=== PATIENT | female | born 1985 | race African-American/Black ===

== ENCOUNTER 2017-10-09 23:08 | Emergency (ER) | payer MEDICAID ==
[~2017-10-09] VITALS: Ht 170.2 cm; Wt 113.6 kg
[~2017-10-09 23:08] MED LIST: CYCL-1 PO; DIAZ5TAB PO; DULO60CA45 PO; IBUP-1986 PO; LISI-232 PO; LORA-269 PO
[2017-10-09 23:46] LABS: BASOPHILS % (AUTO) 0.1 % (0-1); EOSINOPHILS % (AUTO) 0.4 % (0-6); HEMOGLOBIN 13.6 g/dl (12.0-16.0); LYMPHOCYTES # (AUTO) 0.7 X10'3 (1.1-4.8); LYMPHOCYTES % (AUTO) 6.9 % (21-51); MEAN CORPUSCULAR HEMOGLOBIN 30.4 PG (27.0-31.0); MEAN CORPUSCULAR HGB CONC 34.9 % (33.0-36.5); MEAN CORPUSCULAR VOLUME 86.9 FL (78-98); MEAN PLATELET VOLUME 8.7 FL (7.4-10.4); MONOCYTES # (AUTO) 0.5 X10'3 (0-0.9); MONOCYTES % (AUTO) 4.3 % (2-12); NEUTROPHILS # (AUTO) 9.2 X10'3 (1.8-7.7); NEUTROPHILS % (AUTO) 88.3 % (42-75); PLATELET COUNT 335 X10'3 (140-440); RED BLOOD COUNT 4.49 X10'6 (4.20-5.60); RED CELL DISTRIBUTION WIDTH 13.8 % (11.5-14.5); WHITE BLOOD COUNT 10.4 X10'3 (4.5-11.0)
[2017-10-09 23:58] LABS: PARTIAL THROMBOPLASTIN TIME 27 SECONDS (22-32); PROTHROMBIN TIME 10.2 SECONDS (9.0-12.0)
[2017-10-10 00:01] LABS: CHLORIDE 100 MMOL/L (99-107); GLUCOSE 101 MG/DL (70-104); POTASSIUM 3.9 MMOL/L (3.5-5.1); SODIUM 137 MMOL/L (135-145); TOTAL CARBON DIOXIDE 25.8 MMOL/L (24-32)
[2017-10-10 00:02] LABS: ALANINE AMINOTRANSFERASE 40 U/L (12-78); ALBUMIN 3.8 G/DL (3.4-5.0); ALBUMIN/GLOBULIN RATIO 0.8 (1.1-1.5); ALKALINE PHOSPHATASE 91 IU/L (46-116); ANION GAP 11 (8-16); ASPARTATE AMINO TRANSFERASE 20 U/L (10-37); BILIRUBIN,TOTAL 0.9 MG/DL (0.1-1.0); BLOOD UREA NITROGEN 11 MG/DL (7-18); BUN/CREATININE RATIO 12.4 (6.6-38.0); CALCIUM 8.8 MG/DL (8.5-10.1); CREATININE 0.89 MG/DL (0.40-0.90); TOTAL PROTEIN 8.5 G/DL (6.4-8.2); eGFR 90 ML/MIN
[2017-10-10 00:55] LABS: URINE HCG NEGATIVE (NEG)
[2017-10-10 01:05] LABS: CLARITY,URINE CLEAR (Clear); COLOR,URINE YELLOW (Yellow); GLUCOSE, URINE NEGATIVE (Neg); KETONES,URINE NEGATIVE (Neg); LEUKOCYTE ESTERASE ,URINE NEGATIVE (Neg); NITRITES, URINE NEGATIVE (Neg); OCCULT BLOOD,URINE TRACE-LYSED (Neg); PROTEIN,URINE TRACE mg/dl (Neg); UROBILINOGEN,URINE 0.2 E.U/dL (0.2-1.0)
[2017-10-10 01:08] LABS: UA COLLECTION TYPE CLN CATCH MIDSTREAM
[2017-10-10 01:10] LABS: BACTERIA,URINE FEW /HPF (Neg); MUCUS STRANDS MODERATE /LPF (Neg); SQUAMOUS EPITHELIAL CELL,UR MODERATE /LPF (FEW); WBC,URINE 0-4 /HPF (0-4)
[2017-10-10] MEDS ORDERED: iohexol 300mg/ml 100ml inj. ONE (01:56)
[2017-10-10] MEDS ORDERED: morphine 4 MG/ML inj SYRINge IV ONE (03:10)
[2017-10-10] MEDS ORDERED: ondansetron/PF 4mg/2ml inj IV ONE (03:10)
[2017-10-10] MEDS ORDERED: ONDA8TAB9 PO (03:27)
[2017-10-10] MEDS ORDERED: HYDR-3965 PO (03:27)
[2017-10-10 03:39] VITALS: BP 139/87
[2017-10-11] MEDS ORDERED: PANT20TA2 PO (20:04)
[2017-10-11] MEDS ORDERED: ONDA4TAB12 PO (20:04)
== END 2017-10-10 03:40 | disposition home or self-care (01) ==
LOC: ER 23:09
DX: R10.10 Upper abdominal pain, unspecified (principal); R11.10 Vomiting, unspecified; R51 Headache; I10 Essential (primary) hypertension; K21.9 Gastro-esophageal reflux disease without esophagitis; Z88.8 Allergy status to other drugs, medicaments and biological substances
CPT/HCPCS: 36415; 74177; 80053; 81001; 81025; 84484; 85025; 85610; 85730; 93005; 96374; 99285; J2270; J2405; J7030; Q9967

== ENCOUNTER 2017-11-11 11:44 | Emergency (ER) | payer MEDICAID ==
[~2017-11-11] VITALS: Ht 170.2 cm; Wt 144.7 kg
[~2017-11-11 11:44] MED LIST changes: +HYDR-3965 PO; +ONDA4TAB12 PO; +ONDA8TAB9 PO; +PANT20TA2 PO
[2017-11-11] MEDS ORDERED: ondansetron 4mg rapidly disintigrating tab PO ONE (12:55)
[2017-11-11] MEDS ORDERED: ONDA4TAB9 SL (12:56)
[2017-11-11 13:25] VITALS: BP 119/69
== END 2017-11-11 13:27 | disposition home or self-care (01) ==
LOC: ER 11:44
DX: J11.1 Influenza due to unidentified influenza virus with other respiratory manifestations (principal); I10 Essential (primary) hypertension; K21.9 Gastro-esophageal reflux disease without esophagitis; Z88.8 Allergy status to other drugs, medicaments and biological substances
CPT/HCPCS: 99283

== ENCOUNTER 2020-11-03 17:44 | Emergency (ER) | payer MEDICAID ==
[~2020-11-03] VITALS: Ht 170.2 cm; Wt 81.6 kg
[~2020-11-03 17:44] MED LIST changes: -CYCL-1 PO; -DIAZ5TAB PO; +DICL50TA8 PO; +DULO-31 PO; -DULO60CA45 PO; +FAMO20TA44 PO; -HYDR-3965 PO; -IBUP-1986 PO; -LISI-232 PO; +LISI1TAB51 PO; -LORA-269 PO; +LORA0.5T PO; +OMEP20CA15 PO; -ONDA4TAB12 PO; -ONDA8TAB9 PO; -PANT20TA2 PO; +PHE25R PR; +PROP10TA10 PO; +SUCR1ORA2 PO
[2020-11-03 18:17] VITALS: BP 175/107
== END 2020-11-03 21:00 | disposition home or self-care (01) ==
LOC: ER 20:06
DX: S63.592A Other specified sprain of left wrist, initial encounter (principal); I10 Essential (primary) hypertension; K21.9 Gastro-esophageal reflux disease without esophagitis; G89.29 Other chronic pain; F32.9 Major depressive disorder, single episode, unspecified; Z87.442 Personal history of urinary calculi; Z90.49 Acquired absence of other specified parts of digestive tract; Z72.89 Other problems related to lifestyle; Z60.2 Problems related to living alone; Z88.8 Allergy status to other drugs, medicaments and biological substances; Z79.899 Other long term (current) drug therapy; W18.2XXA Fall in (into) shower or empty bathtub, initial encounter; Y93.E1 Activity, personal bathing and showering; Y92.89 Other specified places as the place of occurrence of the external cause; Y99.8 Other external cause status
CPT/HCPCS: 73110; 99283